=== PATIENT | male | born 1945 | race Caucasian/White ===

== ENCOUNTER 2019-11-29 07:00 | Outpatient (CLI) | payer MEDICARE, OTHER ==
[2019-11-29 12:57] LABS: HGB - HEMOGLOBIN 7.5 g/dL (14.0-18.0); LYMPHOCYTES % (AUTO) 72.4 %; MEAN CORPUSCULAR HEMOGLOBIN 31.3 pg (27.0-31.0); MEAN CORPUSCULAR HGB CONC 29.2 g/dL (32.0-36.0); MEAN CORPUSCULAR VOLUME 107.1 fL (80.0-94.0); MEAN PLATELET VOLUME 9.6 fL (7.4-11.4); NEUTROPHILS % (AUTO) 7.6 %; PLT - PLATELET COUNT 46 10^3/uL (130-450); RED CELL DISTRIBUTION WIDTH 17.9 % (12.0-15.0)
[2019-11-29 13:23] LABS: ALBUMIN 3.8 g/dL (3.2-5.5); BILIRUBIN,TOTAL 0.8 mg/dL (0.2-1.0); CREATININE 1.1 mg/dL (0.6-1.2); TOTAL PROTEIN 7.6 g/dL (6.7-8.2)
[2019-11-29 14:26] LABS: WHITE BLOOD COUNT 1.7 x10^3/uL (4.8-10.8)
[2019-11-29 14:27] LABS: ABNORMAL LYMPHS % (MANUAL) 0 %; BAND NEUTROPHILS % (MANUAL) 0 %
[2019-11-29 14:28] LABS: LYMPHOCYTES # (MANUAL) 1.3 10^3/uL (1.5-3.5); LYMPHOCYTES % (MANUAL) 70 %; MONOCYTES # (MANUAL) 0.3 10^3/uL (0.0-1.0); PLATELET ESTIMATE, MANUAL DECREASED (<130,000) (NORMAL); PLATELET MORPHOLOGY NORMAL APPEARANCE (NORMAL)
[2019-11-29 14:29] LABS: DIFFERENTIAL COMMENT MANUAL DIFFERENTIAL
== END 2019-11-29 23:59 | disposition home or self-care (01) ==
LOC: LAB.WCP 07:00
PROVIDERS: ATTEND Family Medicine
DX: R06.09 Other forms of dyspnea (principal)
CPT/HCPCS: 36415; 80053; 83880; 84443; 85025; 85651

== ENCOUNTER 2020-02-14 10:55 | Day surgery (SDC) | payer MEDICARE, OTHER ==
--- NOTE | 2020-02-14 12:32 | ANESTHESIA PROCEDURE NOTE ---
Anesth Central Line Template - Central Line Central Line Preparation: Consent Obtained, Time out completed, Ultrasound used, Sterile prep and drape Central line type: Single lumen Central line catheter tip site resides: Superior vena cava (SVC) Central line aftercare: Secured, Placement confirmed, No pneumothorax, No complications, Bundle checklist complete, Pt tolerated well (PICC line right upper inner arm first attempt)
--- NOTE | 2020-02-14 12:34 | XRAY Report ---
PROCEDURE: Chest for Line Placement INDICATIONS: picc line insertion TECHNIQUE: One view of the chest was acquired. COMPARISON: 08/25/2015 FINDINGS: Surgical changes and devices: Right-sided PICC line tip appears to be coiled within the SVC, the tip is oriented superiorly. Lungs and pleura: No pleural effusions or pneumothorax. Lungs are clear. Mediastinum: Mediastinal contours appear normal. Heart size is normal. Bones and chest wall: No suspicious bony lesions. Overlying soft tissues appear unremarkable. IMPRESSION: Right-sided PICC line tip appears coiled within the lower SVC, consider pullback and repositioning. Reviewed by: Kirk Ziegler MD on 02/14/2020 12:33 PM PDT Approved by: Kirk Ziegler MD on 02/14/2020 12:33 PM PDT Station ID: [id number]
== END 2020-02-14 10:56 | disposition home or self-care (01) ==
LOC: SDS 10:55
PROVIDERS: ATTEND Nurse Anesthetist, Certified Registered
PROC: 02HV33Z Insertion of Infusion Device into Superior Vena Cava, Percutaneous Approach (ICD-10-PCS; principal; 2020-02-14 11:30)
DX: M27.2 Inflammatory conditions of jaws (principal)
CPT/HCPCS: 36569; 71045; C1751

== ENCOUNTER 2020-04-07 16:03 | Outpatient (CLI) | payer MEDICARE, OTHER | END 2020-04-07 16:04 | disposition home or self-care (01) | LOC: COV 16:03 | PROVIDERS: ATTEND Family Medicine | DX: R50.9 Fever, unspecified (principal); R05 Cough; J02.9 Acute pharyngitis, unspecified; R09.81 Nasal congestion; Z20.828 Contact with and (suspected) exposure to other viral communicable diseases ==

== ENCOUNTER 2021-03-11 09:26 | Day surgery (SDC) | payer MEDICARE, OTHER ==
[2021-03-11 09:57] LABS: BASOPHILS % (AUTO) 0.4 %; EOSINOPHILS % (AUTO) 30.1 %; HCT - HEMATOCRIT 32.5 % (42.0-52.0); HGB - HEMOGLOBIN 9.3 g/dL (14.0-18.0); LYMPHOCYTES % (AUTO) 42.8 %; MEAN CORPUSCULAR HEMOGLOBIN 27.7 pg (27.0-31.0); MEAN CORPUSCULAR HGB CONC 28.6 g/dL (32.0-36.0); MEAN CORPUSCULAR VOLUME 96.7 fL (80.0-94.0); MEAN PLATELET VOLUME 9.8 fL (7.4-11.4); MONOCYTES % (AUTO) 23.1 %; NEUTROPHILS % (AUTO) 2.7 %; PLT - PLATELET COUNT 70 10^3/uL (130-450); RED BLOOD COUNT 3.36 10^6/uL (4.70-6.10); WHITE BLOOD COUNT 2.3 x10^3/uL (4.8-10.8)
[2021-03-11] MEDS ORDERED: LACTATED RINGERS 1,000 ML IV ONE ×2 (09:59→11:11)
[2021-03-11 10:03] LABS: ABNORMAL LYMPHS % (MANUAL) 0 %; BAND NEUTROPHILS % (MANUAL) 0 %
[2021-03-11 10:09] LABS: INR 1.3 (0.8-1.2); PT - PROTHROMBIN TIME 14.4 secs (9.9-12.6)
[2021-03-11] MEDS ORDERED: BUFFERED LIDOCAINE 10 ML SYRINGE ONE (10:30)
[2021-03-11] MEDS ORDERED: fentaNYL 100 MCG/2 ML VIAL ONE (10:31)
[2021-03-11] MEDS ORDERED: ONDANSETRON 4 MG/2 ML VIAL ONE (10:31)
[2021-03-11] MEDS ORDERED: FLUMAZENIL 0.1 MG/1 ML 5 ML MDV IVP ONE (10:31)
[2021-03-11] MEDS ORDERED: NALOXONE 0.4 MG/ML VIAL ONE (10:31)
[2021-03-11] MEDS ORDERED: MIDAZOLAM 2 MG/2 ML VIAL ONE (10:32)
[2021-03-11 10:52] LABS: LYMPHOCYTES % (MANUAL) 48 %; MONOCYTES # (MANUAL) 0.1 10^3/uL (0.0-1.0); MYELOCYTES % (MANUAL) 2 %; NEUTROPHILS # (MANUAL) 0.1 10^3/uL (1.5-6.6); NUCLEATED RBC (MANUAL) 21 %; OTHER CELLS % (MANUAL) 3 %; PROMYELOCYTES % (MANUAL) 5 %
[2021-03-11 10:56] LABS: BLAST CELLS % (MANUAL) 4 %
[2021-03-11 10:58] LABS: PLATELET MORPHOLOGY NORMAL APPEARANCE (NORMAL)
[2021-03-11 10:59] LABS: DIFFERENTIAL COMMENT MANUAL DIFFERENTIAL; PLATELET ESTIMATE, MANUAL DECREASED (<130,000) (NORMAL)
[2021-03-11 11:05] LABS: EOSINOPHILS # (MANUAL) 0.6 10^3/uL (0-0.7); LYMPHOCYTES # (MANUAL) 0.9 10^3/uL (1.5-3.5); corrected WHITE BLOOD COUNT 1.9 10^3/uL (4.8-10.8)
--- NOTE | 2021-03-11 11:25 | CT Report ---
PROCEDURE: BONE MARROW BX W/ASPIRATION INDICATIONS: MDS RAEB TECHNIQUE: Informed, written consent was obtained from the patient prior to the procedure. Patient wa s brought to the CT suite, and placed in a prone position. Conscious sedation was administered by [facility] nursing staff while continuous cardiorespiratory monitoring was performed. Transportation Superintendent CT imaging of t he right iliac wing was obtained with overlying localization grid. The appropriate percutaneous site for percutaneous access to the right iliac wing posteriorly was marked, prepped and draped sterilely, and a fused with lidocaine. Under CT guidance, the bone marrow access device was advanced into the p osterior aspect of the right iliac wing. Bone marrow aspirate as well as core sample was obtained and given to laboratory for analysis. Bone marrow access device was then withdrawn and pressure was appl ied for hemostasis. COMPARISON: None. FINDINGS: Prior to bone marrow aspiration and core biopsy, the tip of the bone marrow access devices within the right posterior iliac wing. IMPRESSION: CT-guided bone marrow aspiration and biopsy as described above. Reviewed by: Roxana Arteaga MD on 03/11/2021 11:24 AM PDT Approved by: Roxana Arteaga MD on 03/11/2021 11:24 AM PDT Station ID: [id number]
[2021-03-11 12:07] VITALS: BP 112/44
== END 2021-03-11 09:27 | disposition home or self-care (01) ==
LOC: SDS 09:26 → EDSTATUS 09:45
PROVIDERS: ATTEND Internal Medicine Hematology & Oncology
DX: D46.21 Refractory anemia with excess of blasts 1 (principal)
CPT/HCPCS: 36415; 38222; 77012; 85025; 85610; 85730; 88184; 88185; 88305; 88311; 88313; 88360; J7120

== ENCOUNTER 2021-03-17 14:30 | Outpatient (CLI) | payer MEDICARE, OTHER ==
--- NOTE | 2021-03-17 19:23 | CONSULTATION NOTE ---
Palliative Care Consultation - Referral Referring Provider: Dr. Cristopher Guzman Time of Visit: [id number] Referral setting: Home Referral Reason: Hi Risk MDS/Goals of Care - Information Sources Records reviewed: Previous records reviewed History/Review of Systems obtained from: Patient, Family ( Ciera) Exam limitations: Clinical condition (patient VLAD) - History of Present Illness Brief History of Present Illness: This is a blake 76-year-old gentleman who originally presented with worsening fatigue, and in the course of work-up for dentures and teeth removal, was having difficulty with healing, infection, and presented actually with mandibular osteomyelitis. His diagnosis it was originally in December/2019, and had a complicated course with a combination of the infection and his neutropenia. He was on 6 weeks of antibiotics, at that time had a PICC line. He did achieve complete remission 08/2020 by bone marrow morphology, and transition to maintenance therapy until 02/09/2021. At this time, he did present with increasing fatigue, rectal bleeding, weakness and severe fatigue, requiring transfusion is currently on infection prophylaxis, but is feeling better overall. Because of worsening pancytopenia and transfusion dependence, concern for relapsing or progressing leukemia had a bone marrow BX 03/11 and is awaiting results. They understood their options, as clinical trial participation, they have had previous consults with [facility], and have very much appreciate their support through the [facility] clinic and Dr. Guzman, feel confident in what he may have to offer. They have chosen to continue with treatment, he has had his chemo treatment, and is due to start this. The last option was moving to hospice or supportive care, at this time his quality of life is acceptable, and this was not an option they were ready to pursue. Patient presents with very low symptom burden, though does have some persistent fatigue. They both have some understanding of the seriousness of his illness, and are hoping both for quantity and quality of life. Palliative care meeting with patient and to establish rapport, and explore priorities, goals of care and continue with advanced care planning that will be informed by upcoming appointment. Medical/Surgical History - Past Medical History Cardiovascular: reports: Hypertension Neuro: reports: None Endocrine/Autoimmune: reports: None GI: reports: Colon polyps, Other (recent rectal bleeding) : reports: None HEENT: reports: Chronic vision loss, Chronic hearing loss (with hearing aids) Psych: reports: None Musculoskeletal: reports: Fatigue Derm: reports: None MRSA Hx?: No Social History - Living Situation Living arrangement: At home Living Situation: With spouse/s.o. [place] System[place] have a [place] home and acreage that they keep up. Are thinking about how to support themselve s, as far as transitioning as he is declining. They do have each 2 children, 6 grandchildren between the 2 of them. Unfortunately no one lives nearby, but there are family members that would come and help if needed. They do have friends in the community and neighbors, who they can call upon for some support. They present themselves as a team, have traveled extensively, and used to [facility]. They come from [place], where some of their family remains. Family History - Family History Family History: Mother: , Cancer (leukemia), Father: , Sister: Alive and Well, Brother: Alive and Well Medications/Allergies - Medications Home Medications: Ambulatory Orders Medication Instructions Recorded Confirmed Ascorbic Acid [Vitamin C] 500 mg PO DAILY 07/26/16 03/10/21 Cholecalciferol (Vitamin D3) 1,000 unit PO DAILY 07/26/16 03/10/21 [Vitamin D3] Magnesium 200 mg PO DAILY PM 07/26/16 03/10/21 Ondansetron [Ondansetron Odt] 8 mg PO BID PRN 12/24/19 03/10/21 Fluoxetine HCl 20 mg PO DAILY 01/01/20 03/11/21 Losartan Potassium 50 mg PO DAILY 01/01/20 03/11/21 Venetoclax [Venclexta] 200 mg PO DAILY 03/23/20 03/10/21 levoFLOXacin [Levaquin] 500 mg ORAL DAILY 02/22/21 03/11/21 Acyclovir 400 mg PO BID #60 tablet 03/01/21 03/11/21 Fluconazole [Diflucan] 400 mg PO DAILY 30 Days 03/01/21 03/11/21 Fluconazole 200 mg/100 ml 400 mg PO DAILY 03/02/21 03/10/21 [Diflucan 200 mg/100 ml] Mv-Mn/Folic/Lutein/Herbal 293 1 each PO DAILY 03/10/21 03/10/21 [Alive Women's 50 Plus Vitamins] Red Yeast Rice 03/10/21 Vitamin B Complex 1 each PO DAILY 03/10/21 03/15/21 - Allergies Allergies/Adverse Reactions: Allergies Allergy/AdvReac Type Severity Reaction Status Date / Time No Known Drug Allergies Allergy Verified 03/10/21 12:40 Review of Systems - Constitutional Constitutional: reports: Fatigue (improved but most limiting symptom), Weight stable. denies: Fever, Chills - Eyes Eyes: reports: Vision loss, Corrective lenses - Ears, Nose & Throat Ears, Nose & Throat: reports: Hearing loss, Hearing aids, Dentures, Other (hx of candidiasis; cleared currently) - Cardiovascular Cardiovascular: reports: Decr. exercise tolerance. denies: Chest pain, Edema - Respiratory Respiratory: denies: Cough, SOB at rest - Gastrointestinal Gastrointestinal: reports: Nausea (pre med with ondansetron), Good appetite. denies: Constipation, Vomiting, Reflux/heartburn - Musculoskeletal Musculoskeletal: reports: Stiffness. denies: Assistive devices - Integumentary Integumentary: reports: Dryness - Psychiatric Psychiatric: denies: Depression, Anxiety - Hematologic/Lymphatic Hematologic/Lymph: reports: Anemia (9.0 transfusion end of February). denies: Recurrent infections - All Other Systems All Other Systems: reports: Reviewed and negative Physical Exam - Vital Signs Temperature: 97.5 C Pulse Rate: 57 Respiratory Rate: 18 O2 Saturation: 100 Blood Pressure: 144/64 - Physical Exam General Appearance: positive: Alert Eyes Bilateral: positive: Normal inspection ENT: positive: No signs of dehydration Neck: positive: Trachea midline Cardiovascular: positive: Regular rate & rhythm Respiratory: positive: No respiratory distress, Breath sounds nml Abdomen: positive: Soft Skin: positive: Dryness, Bruising Extremities: positive: No pedal edema Neurologic/Psychiatric: positive: Oriented x3, Mood/affect nml Palliative Care - POLST Patient has POLST: No Pain: No pain Feelings of wellbeing/Perceived Quality of Life: Good, Acceptable, Improved Sleep: Sleeps well Constipation: No Performance Status: Patient has always been quite healthy at baseline, does mow his grass, he did have a dip with his pancytopenia but is feeling much better. He does get what he calls "tired" and has to rest and recover, but is independent in his ADLs and still driving. - Palliative Care Discussion: Introduced palliative care as an extra layer support, reviewed role in following along given the seriousness of his illness. Aware pending outcome of bone marrow biopsy may have different implications and looking at goals in the future. Patient and reflected they perceive themselves as a team, Ciera dorian by having information, being able to be a good advocate, and feels very confident in their current health care team. They were welcoming of having another maintenance team leader, and explained work with them as they are navigating this uncertain course. Patient perceives his current quality of life is quite good, he has been healthy most of his life and neither of them have had any serious illness other than has had her own experience with cancer that is being monitored. His mother of leukemia and on hospice, but that experience was limited. They do have end-of-life planning documents i.e. will and directive they believed, these were done over 15 years ago they will get copies of those specific to their healthcare, and we will review these in the context of their current goals. Counseling provided regarding the need to have in his records given it is important for the health care team to know his wishes if we were to run into complications. They did weigh the continuum of care as far as clinical trials, treatment, supportive/hospice care and are moving forward with treatment. They are anxious about the pending bone marrow biopsy and future implications. Supportive listening provided. 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 He is to start treatment 03/22/2020 plan. Palliative care to provide support and anticipatory guidance. Recommendations/Counseling Done: 1. Anxiety. This is multifactorial, given awaiting outcome of bone marrow biopsy, and implications for future and future treatment. Patient and present with good coping mechanisms, supportive of each other, and do have access to family in community for ongoing support. Counseling provided regarding palliative care's role as a layer support and further sounding board for weighing benefits and burdens of future decisions. 2. MDS syndrome, high risk. Patient to initiate treatment 03/22, does present with low symptom burden currently. Patient's functional status, baseline health, and neutral weight are supportive of patient tolerating treatment into the future, has done well previously. Counseling reviewed on nutrition, activity, hydration particularly in the context of pending heat wave, at this point in time fatigue is most persistent. 3. Advanced care planning. Patient and appreciate the seriousness of the illness, are hoping for both quality and quantity of life. Initiated conversation regarding advanced care planning and goals of care in the context of looking to the future. Will await outcome of bone marrow biopsy to revisit and document patient's wishes and goals at future visit. Counseling provided regarding the role of palliative care as a layer support and following patient through the course of this journey in the context of providing support, symptom management, and psychosocial support for both patient and as unit of care. 60 minutes with greater than 50% of this done in counseling regarding palliative care, symptom management, advanced care planning introduced and anticipatory guidance.
== END 2021-03-17 14:31 | disposition home or self-care (01) ==
LOC: PC 14:30
PROVIDERS: ATTEND Nurse Practitioner Adult Health
DX: Z51.5 Encounter for palliative care (principal); F41.9 Anxiety disorder, unspecified; D46.9 Myelodysplastic syndrome, unspecified; R11.0 Nausea; R53.83 Other fatigue; H91.93 Unspecified hearing loss, bilateral; Z79.899 Other long term (current) drug therapy
CPT/HCPCS: 99344

== ENCOUNTER 2021-03-21 07:41 | Outpatient (CLI) | payer MEDICARE, OTHER | END 2021-03-21 07:42 | disposition critical access hospital (66) | LOC: EMS 07:41 | DX: R42 Dizziness and giddiness (principal); K92.1 Melena | CPT/HCPCS: A0425; A0429 ==

== ENCOUNTER 2021-03-21 07:51 | Emergency (ER) | payer MEDICARE, OTHER ==
[2021-03-21 08:42] LABS: HCT - HEMATOCRIT 20.5 % (42.0-52.0); LYMPHOCYTES # (AUTO) 0.5 10^3/uL (1.5-3.5); LYMPHOCYTES % (AUTO) 19.8 %; MEAN CORPUSCULAR HEMOGLOBIN 26.8 pg (27.0-31.0); MEAN CORPUSCULAR HGB CONC 29.3 g/dL (32.0-36.0); MEAN CORPUSCULAR VOLUME 91.5 fL (80.0-94.0); MONOCYTES # (AUTO) 0.9 10^3/uL (0.0-1.0); MONOCYTES % (AUTO) 37.6 %; NEUTROPHILS % (AUTO) 42.2 %; NRBC ABSOLUTE COUNT (AUTO) 0.78 x10^3/uL; NUCLEATED RED BLOOD CELLS AUTO 32.2 /100WBC; RED BLOOD COUNT 2.24 10^6/uL (4.70-6.10); RED CELL DISTRIBUTION WIDTH 15.8 % (12.0-15.0); WHITE BLOOD COUNT 2.4 x10^3/uL (4.8-10.8)
[2021-03-21 08:47] LABS: PLT - PLATELET COUNT 6 10^3/uL (130-450)
[2021-03-21 08:49] LABS: INR 1.3 (0.8-1.2); PT - PROTHROMBIN TIME 14.4 secs (9.9-12.6)
--- NOTE | 2021-03-21 08:50 | ED Physician Documentation ---
PD HPI GI BLEED - Stated complaint Stated Complaint: GIB - Chief complaint Chief Complaint: Abd Pain - History obtained from History obtained from: Patient, Family - History of Present Illness Timing - onset: How many days ago (2) Timing - duration: Days (2) Timing - details: Gradual onset, Still present, Waxing and waning Associated symptoms: BRBPR, Maroon stool Contributing factors: Other (MDS). No: Sick contact, Bad food, Travel, Recent antibiotics, Alcohol use, Aspirin use, NSAID use, Stress, Anticoagulated, Diabetes Similar symptoms before: Diagnosis (GIB secondary to reduced platelets) Recently seen: Other - Additional information Additional information: 76-year-old male with a history of myelodysplastic syndrome has become transfusion dependent and has limited life expectancy. He has had recent transfusion of both red cells and platelets and he has developed intermittent bleeding. He has developed bleeding again. Today he had BRBPR at 0600. When he asked his to take him to the ED he was not able to get to the garage to get in the car and she called 911. Review of Systems Constitutional: denies: Fever Eyes: denies: Decreased vision Ears: denies: Ear pain Nose: denies: Congestion Throat: denies: Sore throat Cardiac: denies: Chest pain / pressure, Palpitations Respiratory: denies: Dyspnea, Cough GI: reports: Bloody / black stool. denies: Abdominal Pain, Nausea, Vomiting : denies: Dysuria, Frequency Skin: denies: Rash Musculoskeletal: denies: Neck pain, Back pain, Extremity pain Neurologic: reports: Generalized weakness. denies: Focal weakness, Numbness PD PAST MEDICAL HISTORY - Past Medical History Past Medical History: Yes Cardiovascular: Hypertension Respiratory: Shortness of breath Endocrine/Autoimmune: None GI: Colon polyps, Other : None HEENT: Chronic vision loss, Chronic hearing loss Psych: None Musculoskeletal: Fatigue Derm: None - Past Surgical History Ortho: Other - Present Medications Home Medications: Ambulatory Orders Medication Instructions Recorded Confirmed Ascorbic Acid [Vitamin C] 500 mg PO DAILY 07/26/16 03/21/21 Cholecalciferol (Vitamin D3) 1,000 unit PO DAILY 07/26/16 03/21/21 [Vitamin D3] Magnesium 200 mg PO DAILY PM 07/26/16 03/21/21 Ondansetron [Ondansetron Odt] 8 mg PO BID PRN 12/24/19 03/21/21 Fluoxetine HCl 20 mg PO DAILY 01/01/20 03/21/21 Losartan Potassium 50 mg PO DAILY 01/01/20 03/21/21 Venetoclax [Venclexta] 200 mg PO DAILY 03/23/20 03/21/21 levoFLOXacin [Levaquin] 500 mg ORAL DAILY 02/22/21 03/21/21 Acyclovir 400 mg PO BID #60 tablet 03/01/21 03/21/21 Fluconazole [Diflucan] 400 mg PO DAILY 30 Days 03/01/21 03/21/21 Mv-Mn/Folic/Lutein/Herbal 293 1 each PO DAILY 03/10/21 03/21/21 [Alive Women's 50 Plus Vitamins] Vitamin B Complex 1 each PO DAILY 03/10/21 03/21/21 - Allergies Allergies/Adverse Reactions: Allergies Allergy/AdvReac Type Severity Reaction Status Date / Time No Known Drug Allergies Allergy Verified 03/21/21 08:04 - Social History Does the pt smoke?: No Smoking Status: Never smoker - POLST Patient has POLST: No PD ED PE NORMAL - Vitals Vital signs reviewed: Yes (hypertensive ) - General General: Alert and oriented X 3, No acute distress, Well developed/nourished - HEENT HEENT: Atraumatic, PERRL, EOMI - Neck Neck: Supple, no meningeal sign, No bony TTP - Cardiac Cardiac: RRR, No murmur - Respiratory Respiratory: No respiratory distress, Clear bilaterally - Abdomen Abdomen: Normal bowel sounds, Soft, Non tender, Non distended, No organomegaly - Back Back: No CVA TTP, No spinal TTP - Derm Derm: Warm and dry, No rash, Other (pale in color) - Extremities Extremities: No deformity, No edema - Neuro Neuro: Alert and oriented X 3, water filter cleaner 2-12 intact, No motor deficit, No sensory deficit, Normal speech Eye Opening: Spontaneous Motor: Obeys Commands Verbal: Oriented GCS Score: 15 - Psych Psych: Normal mood, Normal affect Results - Vitals Vitals: Vital Signs - 24 hr 03/21/21 03/21/21 03/21/21 07:58 08:33 10:04 Temperature 35.5 C L 36.5 C Heart Rate 95 62 60 Respiratory 16 16 16 Rate Blood Pressure 142/66 H 109/82 H 122/47 L O2 Saturation 100 99 98 03/21/21 03/21/21 03/21/21 11:09 11:15 11:25 Temperature 36.4 C L 36.7 C 36.5 C Heart Rate 75 63 68 Respiratory 15 16 15 Rate Blood Pressure 131/51 H 123/57 L 136/55 H O2 Saturation 03/21/21 03/21/21 03/21/21 12:00 13:38 14:00 Temperature 36.5 C 36.6 C 36.7 C Heart Rate 70 66 72 Respiratory 15 16 14 Rate Blood Pressure 119/60 138/55 H 128/54 L O2 Saturation 96 99 03/21/21 03/21/21 03/21/21 14:01 14:06 14:15 Temperature 36.4 C L 36.9 C 36.9 C Heart Rate 67 70 69 Respiratory 16 16 16 Rate Blood Pressure 128/56 L 128/54 L 126/51 L O2 Saturation 03/21/21 03/21/21 03/21/21 14:20 16:00 16:14 Temperature 36.8 C 36.9 C Heart Rate 70 67 76 Respiratory 16 17 14 Rate Blood Pressure 127/52 L 133/53 H 139/54 H O2 Saturation 98 03/21/21 03/21/21 03/21/21 16:22 16:32 18:00 Temperature 36.9 C 37.1 C 36.6 C Heart Rate 72 73 64 Respiratory 14 17 17 Rate Blood Pressure 133/53 H 122/52 L 134/51 H O2 Saturation 100 03/21/21 18:51 Temperature 37.1 C Heart Rate 65 Respiratory 18 Rate Blood Pressure 135/61 H O2 Saturation Oxygen O2 Source Room air - Labs Labs: Laboratory Tests 03/21/21 03/21/21 03/21/21 08:24 08:24 08:24 WBC 2.4 L RBC 2.24 L Hgb 6.0 L* Hct 20.5 L MCV 91.5 MCH 26.8 L MCHC 29.3 L RDW 15.8 H Plt Count 6 L* Neut # (Auto) 1.0 L Lymph # (Auto) 0.5 L [place] # (Auto) 0.9 Eos # (Auto) 0.0 Baso # (Auto) 0.0 Absolute Nucleated RBC 0.78 Nucleated RBC % 32.2 PT 14.4 H INR 1.3 H APTT 26.1 Sodium 140 Potassium 4.5 Chloride 108 Carbon Dioxide 20 L Anion Gap 12.0 BUN 35 H Creatinine 1.5 H Estimated GFR (MDRD) 45 L Glucose 163 H Calcium 8.7 Total Bilirubin 0.7 AST 23 ALT 18 Alkaline Phosphatase 59 Total Protein 5.8 L Albumin 3.2 Globulin 2.6 Albumin/Globulin Ratio 1.2 Lipase 28 Blood Type Antibody Screen Crossmatch IS Only 03/21/21 03/21/21 03/21/21 08:24 08:59 14:35 WBC RBC Hgb 6.6 L* Hct 21.4 L MCV MCH MCHC RDW Plt Count Neut # (Auto) Lymph # (Auto) [place] # (Auto) Eos # (Auto) Baso # (Auto) Absolute Nucleated RBC Nucleated RBC % PT INR APTT Sodium Potassium Chloride Carbon Dioxide Anion Gap BUN Creatinine Estimated GFR (MDRD) Glucose Calcium Total Bilirubin AST ALT Alkaline Phosphatase Total Protein Albumin Globulin Albumin/Globulin Ratio Lipase Blood Type B POSITIVE B POSITIVE Antibody Screen NEGATIVE Crossmatch IS Only See Detail PD MEDICAL DECISION MAKING - ED course Complexity details: reviewed old records, reviewed results, re-evaluated patient, considered differential, d/w patient, d/w family ED course: 76-year-old male with a history of myelodysplastic syndrome has become transfusion dependent and he has had an issue with low platelets. He has had a recent transfusion of platelets and blood and is now having issues with GI bleeding again. His hemoglobin is 6.0 and his platelets are 6000. His most recent transfusion was on 03/10/2021 with platelets and 7-28 with blood. His platelets have been as low as 3. His hemoglobin has not been 6 before.Irradiated leukoreduced blood and platelets are ordered. Infusion of blood is begun. He is administered 1 L 1 unit of blood followed by a unit of platelets and following this his hemoglobin increased to 6.6 and a second unit is administered.He has follow-up tomorrow at the [facility] clinic and will have blood work repeated then. Departure - Departure Disposition: 01 Home, Self Care Clinical Impression: Myelodysplasia, high grade, Thrombocytopenia GI bleeding Qualifiers: GI bleed type/associated pathology: anorectal hemorrhage Qualified Code(s): K62.5 - Hemorrhage of anus and rectum Anemia Qualifiers: Anemia type: bone marrow failure Bone marrow failure anemia type: pancytopenia, other Qualified Code(s): D61.818 - Other pancytopenia Instructions: Thrombocytopenia, ED Hematochezia Stable Follow-Up: Jerry Erickson DO [Primary Care Provider] - Comments: Follow-up tomorrow at the [facility] clinic as previously planned. Discharge Date/Time: 03/21/21 19:01
[2021-03-21 08:55] LABS: ALBUMIN 3.2 g/dL (3.2-5.5); ALBUMIN/GLOBULIN RATIO 1.2 (1.0-2.2); BILIRUBIN,TOTAL 0.7 mg/dL (0.2-1.0); CALCIUM 8.7 mg/dL (8.5-10.3); CREATININE 1.5 mg/dL (0.6-1.2); POTASSIUM 4.5 mmol/L (3.5-5.0); TOTAL PROTEIN 5.8 g/dL (6.7-8.2)
[2021-03-21 08:56] LABS: PARTIAL THROMBOPLASTIN TIME 26.1 secs (24.9-33.3)
[2021-03-21 15:12] LABS: HCT - HEMATOCRIT 21.4 % (42.0-52.0)
[2021-03-21 15:16] LABS: HGB - HEMOGLOBIN 6.6 g/dL (14.0-18.0)
[2021-03-21 18:52] VITALS: BP 135/61
== END 2021-03-21 19:01 | disposition home or self-care (01) ==
LOC: EDUNIT# → ED 07:51
DX: K62.5 Hemorrhage of anus and rectum (principal); D46.9 Myelodysplastic syndrome, unspecified; D69.6 Thrombocytopenia, unspecified; D61.818 Other pancytopenia
CPT/HCPCS: 36415; 36430; 80053; 83690; 85014; 85018; 85025; 85610; 85730; 86850; 86900; 86901; 86920; 99284; 99285; P9037; P9040

== ENCOUNTER 2021-04-02 09:27 | Day surgery (SDC) | payer MEDICARE, OTHER ==
[2021-04-02 09:46] VITALS: BP 145/50
--- NOTE | 2021-04-02 10:45 | ANESTHESIA PROCEDURE NOTE ---
Anesth Central Line Template - Central Line Central Line Preparation: Consent Obtained, Time out completed, Ultrasound used, Sterile prep and drape Central line location: Right Basilic Central line type: PICC Double Lumen Central line catheter tip site resides: Superior vena cava (SVC) Central line aftercare: Secured, Placement confirmed, No pneumothorax, No complications, Bundle checklist complete, Pt tolerated well
--- NOTE | 2021-04-02 10:54 | XRAY Report ---
PROCEDURE: Chest 1 View X-Ray INDICATIONS: PICC LINE INSERTION TECHNIQUE: One view of the chest was acquired. COMPARISON: Chest radiographs 04/06/2020 FINDINGS: Surgical changes and devices: A right PICC is seen with catheter tip projecting over the superior cav oatrial junction. Lungs and pleura: No pleural effusions or pneumothorax. Lungs are clear. Mediastinum: Mediastinal contours appear normal. Heart size is normal. Bones and chest wall: No suspicious bony lesions. Overlying soft tissues appear unremarkable. Dege nerative changes are seen in the spine and acromioclavicular joints. IMPRESSION: Right PICC terminates at the superior cavoatrial junction. Reviewed by: Manav Montejo MD on 04/02/2021 10:52 AM PDT Approved by: Manav Montejo MD on 04/02/2021 10:52 AM PDT Station ID: [id number]
== END 2021-04-02 09:28 | disposition home or self-care (01) ==
LOC: SDS 09:27
PROVIDERS: ATTEND Registered Nurse
DX: D61.818 Other pancytopenia (principal); D64.9 Anemia, unspecified
CPT/HCPCS: 36569; 71045; C1751

== ENCOUNTER 2021-04-02 10:46 | Outpatient (CLI) | payer MEDICARE, OTHER ==
[2021-04-02] MEDS ORDERED: IOPAMIDOL-300 50 ML VIAL ONE (11:10)
[2021-04-02] MEDS ORDERED: IOVERSOL 320 50 ML VIAL ONE (11:10)
[2021-04-02] MEDS ORDERED: IOPAMIDOL-300 50 ML VIAL IVP ONE (12:56)
[2021-04-02] MEDS ORDERED: IOVERSOL 320 50 ML VIAL PO ONE (12:56)
--- NOTE | 2021-04-02 15:20 | CT Report ---
PROCEDURE: Abdomen/Pelvis W INDICATIONS: RECTAL BLEEDING CONTRAST: IV CONTRAST: Isovue 300 ml: 100 PO CONTRAST: Optiray 320 ml50 TECHNIQUE: After the administration of nonionic contrast, 5 mm thick sections acquired from the diaphragms to th e symphysis. 5 mm thick coronal and sagittal reformats were acquired. For radiation dose reduction, the following was used: automated exposure control, adjustment of mA and/or kV according to patient size. COMPARISON: None. FINDINGS: Image quality: Excellent. ABDOMEN: Lung bases: Lung bases are clear except for mild dependent atelectasis. Heart size is normal. Solid organs: Liver and spleen are normal in size and enhancement. Gallbladder appears normal Bili mis system is non dilated. Pancreas enhances normally. No adrenal nodules. Kidneys demonstrate nor mal size and enhancement, without hydronephrosis. Peritoneum and bowel: Bowel loops demonstrate normal wall thickness and caliber. No free fluid or a ir. Nodes and vessels: No retroperitoneal or mesenteric adenopathy by size criteria. Aorta and inferior vena cava are normal in size. 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 Miscellaneous: No ventral hernias. PELVIS: Genitourinary: Bladder wall thickness is normal. Miscellaneous: No inguinal hernias or adenopathy. A colonic mass lesion is seen. A source of report ed rectal bleeding is not identified. There is no sign of colitis. Bones: No suspicious bony lesions. No vertebral body compression fractures. IMPRESSION: Etiology of rectal bleeding is not found. 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 Reviewed by: Jerome Rodriguez MD on 04/02/2021 3:18 PM PDT Approved by: Jerome Rodriguez MD on 04/02/2021 3:18 PM PDT Station ID: [id number]
== END 2021-04-02 10:47 | disposition home or self-care (01) ==
LOC: DI 10:46
PROVIDERS: ATTEND Surgery
DX: K62.5 Hemorrhage of anus and rectum (principal); D64.9 Anemia, unspecified; D12.6 Benign neoplasm of colon, unspecified; I77.89 Other specified disorders of arteries and arterioles
CPT/HCPCS: 74177; Q9967

== ENCOUNTER 2021-04-03 21:43 | Outpatient (CLI) | payer MEDICARE, OTHER | END 2021-04-03 23:59 | disposition home or self-care (01) | LOC: EMS 21:43 | DX: I46.9 Cardiac arrest, cause unspecified (principal) ==